=== PATIENT | female | born 1990 | race Caucasian/White ===

== ENCOUNTER → 2018-12-23 | Outpatient (CLI) | payer OTHER ==
[2018-12-26 07:20] LABS: RUBELLA IGG AB <0.90 index (Immune >0.); RUBEOLA IGG AB 29.8 AU/mL (Immune >29); VARICELLA ZOSTER IGG AB 973 index (Immune >16)
== END ==
LOC: OD 15:28
PROVIDERS: ATTEND Nurse Practitioner Family
DX: Z01.84 Encounter for antibody response examination (principal)
CPT/HCPCS: 36415; 86615; 86735; 86762; 86765; 86787